=== PATIENT | female | born 2000 | race Caucasian/White ===

== ENCOUNTER 2019-02-15 17:48 | Emergency (ER) | payer SELFPAY ==
[~2019-02-15] VITALS: Ht 170.2 cm; Wt 52.3 kg
[2019-02-15 17:58] VITALS: BP 132/77; TEMP 97.5
[2019-02-15] MEDS ORDERED: PROAIR HFA0.09 MG/AC IH (18:06)
[2019-02-15] MEDS ORDERED: ZYRTEC 10MG10 MG PO (18:06)
[2019-02-15 18:25] LABS: BASO # 0.1 (0.0-0.2); BASO % 0.4 % (0.0-2.0); EOS # 1.5 (0.0-0.7); EOS % 11.5 % (0-4.0); GRAN # 7.8 (1.4-6.5); GRAN % 60.1 % (42.2-75.2); HEMATOCRIT 39.2 % (35.0-45.0); HEMOGLOBIN 13.6 g/dl (12.0-15.0); LYMPH # 2.8 (1.2-3.4); LYMPH % 21.2 % (20.0-51.0); MEAN CELL VOLUME 88 fl (80.0-95.0); MEAN CORPUSCULAR HEMOGLOBIN 31 pg (26.0-32.0); MEAN CORPUSCULAR HGB CONC 35 g/dl (33.0-37.0); MEAN PLATELET VOLUME 9.5 fl (7.4-10.4); MONO # 0.9 (0.1-0.6); MONO % 6.6 % (1.7-9.3); PLATELET COUNT 282 K/mm3 (130-400); RED BLOOD COUNT 4.45 M/mm3 (4.10-5.30)
[2019-02-15 18:46] LABS: COLLECTION METHOD CLEAN CATCH
[2019-02-15 18:47] LABS: ALBUMIN 4.6 gm/dL (3.5-5.0); BILIRUBIN,TOTAL 0.3 mg/dL (0.0-1.0); C-REACTIVE PROTEIN 0.6 mg/dL (0.0-0.9); CALCIUM 9.6 mg/dL (8.4-10.2); CREATININE, serum 0.75 (0.52-1.25); POTASSIUM 3.7 mmol/L (3.4-5.0); TOTAL PROTEIN 7.8 gm/dL (6.4-8.2)
[2019-02-15 19:01] LABS: MUCOUS Present /lpf; PH 5 (5-8); URINE APPEARANCE Clear; URINE BACTERIA None Seen /hpf; URINE BILIRUBIN Negative (NEGATIVE); URINE BLOOD Negative (NEGATIVE); URINE COLOR Yellow; URINE GLUCOSE Negative (NEGATIVE); URINE KETONE Negative (NEGATIVE); URINE LEUKOCYTE ESTERASE Negative (NEGATIVE); URINE NITRATE Negative (NEGATIVE); URINE PROTEIN(semi-quant) Negative (NEGATIVE); URINE RBC 0-2 /hpf; URINE UROBILINOGEN Negative (NEGATIVE)
[2019-02-15] MEDS ORDERED: NORCO 325 MG-51 TAB PO (21:18)
[2019-02-15] MEDS ORDERED: ZOFRAN ODT4 MG PO (21:18)
[2019-02-15 21:52] VITALS: PULSE 85
== END 2019-02-15 21:52 | disposition home or self-care (01) ==
LOC: COL.ER 17:48
PROVIDERS: Nurse Practitioner
DX: R10.31 Right lower quadrant pain (principal); J45.909 Unspecified asthma, uncomplicated
CPT/HCPCS: J1170; J1885; J2405; J7030; Q9967

== ENCOUNTER 2019-05-21 11:57 | Emergency (ER) | payer SELFPAY ==
[~2019-05-21] VITALS: Ht 170.2 cm; Wt 54.5 kg
[~2019-05-21 11:57] MED LIST: NORCO 325 MG-51 TAB PO; PROAIR HFA0.09 MG/AC IH; ZOFRAN ODT4 MG PO; ZYRTEC 10MG10 MG PO
[2019-05-21 12:05] VITALS: TEMP 98.4
[2019-05-21 12:37] LABS: COLLECTION METHOD CLEAN CATCH
[2019-05-21 12:44] LABS: MUCOUS Present /lpf; PH 5 (5-8); SQUAMOUS EPITHELIAL 0-2 /hpf; URINE APPEARANCE Clear; URINE BACTERIA None Seen /hpf; URINE BILIRUBIN Negative (NEGATIVE); URINE BLOOD Negative (NEGATIVE); URINE COLOR Yellow; URINE GLUCOSE Negative (NEGATIVE); URINE KETONE Negative (NEGATIVE); URINE LEUKOCYTE ESTERASE Negative (NEGATIVE); URINE NITRATE Negative (NEGATIVE); URINE PROTEIN(semi-quant) Negative (NEGATIVE); URINE RBC 0-2 /hpf; URINE UROBILINOGEN Negative (NEGATIVE)
[2019-05-21 13:50] LABS: BASO % 0.4 % (0.0-2.0); EOS # 0.5 (0.0-0.7); EOS % 6.2 % (0-4.0); GRAN # 5.3 (1.4-6.5); GRAN % 65.7 % (42.2-75.2); HEMATOCRIT 38.5 % (35.0-45.0); HEMOGLOBIN 13.1 g/dl (12.0-15.0); LYMPH # 1.7 (1.2-3.4); MEAN CELL VOLUME 88 fl (80.0-95.0); MEAN CORPUSCULAR HEMOGLOBIN 30 pg (26.0-32.0); MEAN CORPUSCULAR HGB CONC 34 g/dl (33.0-37.0); MEAN PLATELET VOLUME 9.7 fl (7.4-10.4); MONO # 0.5 (0.1-0.6); MONO % 6.5 % (1.7-9.3); PLATELET COUNT 277 K/mm3 (130-400); REDCELL DISTRIBUTION WIDTH-CV 12.1 % (11.5-14.5)
[2019-05-21 14:21] LABS: ALANINE AMINOTRANSFERASE 7 U/L (9-52); ALBUMIN 4.3 gm/dL (3.5-5.0); ALKALINE PHOSPHATASE 62 U/L (50-136); ANION GAP 9 mmol/L (7-16); AST,SGOT 26 U/L (15-37); BILIRUBIN,TOTAL 0.6 mg/dL (0.0-1.0); BLOOD UREA NITROGEN 11 mg/dL (7-17); CALCIUM 9.5 mg/dL (8.4-10.2); CARBON DIOXIDE 25 mmol/L (22-30); CHLORIDE 106 mmol/L (98-107); GLUCOSE 97 mg/dL (74-106); LIPASE 117 U/L (23-300); POTASSIUM 4.3 mmol/L (3.4-5.0); SODIUM 140 mmol/L (137-145); TOTAL PROTEIN 7.1 gm/dL (6.4-8.2)
[2019-05-21 14:27] LABS: C-REACTIVE PROTEIN < 0.5 mg/dL (0.0-0.9)
[2019-05-21] MEDS ORDERED: ZOFRAN ODT4 MG PO (15:42)
[2019-05-21] MEDS ORDERED: PHENERGAN 25 TA25 MG PO (15:42)
[2019-05-21 16:00] VITALS: BP 112/62; PULSE 85
== END 2019-05-21 16:10 | disposition home or self-care (01) ==
LOC: COL.ER 11:57
PROVIDERS: Emergency Medicine
DX: B34.9 Viral infection, unspecified (principal); R11.10 Vomiting, unspecified
CPT/HCPCS: J1885; J2405; J7030

== ENCOUNTER 2019-11-22 08:15 | Emergency (ER) | payer OTHER ==
[~2019-11-22] VITALS: Ht 167.6 cm; Wt 54.5 kg
[~2019-11-22 08:15] MED LIST changes: +PHENERGAN 25 TA25 MG PO
[2019-11-22 08:24] VITALS: BP 126/76; TEMP 97.7
[2019-11-22] MEDS ORDERED: TAMIFLU 75MG75 MG PO (09:49)
[2019-11-22 10:36] VITALS: PULSE 91
== END 2019-11-22 10:36 | disposition home or self-care (01) ==
LOC: COL.ER 08:15
DX: J11.1 Influenza due to unidentified influenza virus with other respiratory manifestations (principal); M54.2 Cervicalgia
CPT/HCPCS: J1885

== ENCOUNTER 2019-11-28 22:18 | Emergency (ER) | payer OTHER ==
[~2019-11-28] VITALS: Ht 167.6 cm; Wt 54.5 kg
[~2019-11-28 22:18] MED LIST changes: +TAMIFLU 75MG75 MG PO
[2019-11-28 22:23] VITALS: BP 133/84; TEMP 97.9
[2019-11-28] MEDS ORDERED: PRENATAL TABLET PO (22:26)
[2019-11-29] MEDS ORDERED: FLEXERIL 1010 MG/TAB PO (00:24)
[2019-11-29 00:33] VITALS: PULSE 95
== END 2019-11-29 00:33 | disposition home or self-care (01) ==
LOC: COL.ER 22:18
DX: M43.6 Torticollis (principal); J45.909 Unspecified asthma, uncomplicated

== ENCOUNTER 2019-12-04 20:17 | Emergency (ER) | payer OTHER ==
[~2019-12-04 20:17] MED LIST changes: +FLEXERIL 1010 MG/TAB PO; +PRENATAL TABLET PO
== END 2019-12-04 21:06 | disposition left against medical advice (07) ==
LOC: COL.ER 20:17
DX: R06.00 Dyspnea, unspecified (principal)

== ENCOUNTER 2020-02-03 11:17 | Emergency (ER) | payer OTHER ==
[~2020-02-03] VITALS: Ht 167.6 cm; Wt 54.5 kg
[2020-02-03 11:21] VITALS: TEMP 98.2
[2020-02-03 11:53] LABS: COLLECTION METHOD CLEAN CATCH
[2020-02-03 11:56] LABS: BASO % 0.3 % (0.0-2.0); EOS # 0.6 (0.0-0.7); EOS % 6.4 % (0-4.0); GRAN # 5.8 (1.4-6.5); GRAN % 66.4 % (42.2-75.2); HEMATOCRIT 38.6 % (35.0-45.0); HEMOGLOBIN 13.5 g/dl (12.0-15.0); LYMPH # 1.8 (1.2-3.4); LYMPH % 20.1 % (20.0-51.0); MEAN CELL VOLUME 88 fl (80.0-95.0); MEAN CORPUSCULAR HEMOGLOBIN 31 pg (26.0-32.0); MEAN CORPUSCULAR HGB CONC 35 g/dl (33.0-37.0); MEAN PLATELET VOLUME 9.2 fl (7.4-10.4); MONO # 0.6 (0.1-0.6); MONO % 6.5 % (1.7-9.3); PLATELET COUNT 264 K/mm3 (130-400); RED BLOOD COUNT 4.41 M/mm3 (4.10-5.30); REDCELL DISTRIBUTION WIDTH-CV 12.6 % (11.5-14.5)
[2020-02-03 12:05] LABS: MUCOUS Present /lpf; PH 8 (5-8); URINE APPEARANCE Turbid; URINE BACTERIA Occasional /hpf; URINE BILIRUBIN Negative (NEGATIVE); URINE BLOOD Negative (NEGATIVE); URINE COLOR Yellow; URINE GLUCOSE Negative (NEGATIVE); URINE KETONE Negative (NEGATIVE); URINE LEUKOCYTE ESTERASE Negative (NEGATIVE); URINE NITRATE Positive (NEGATIVE); URINE PROTEIN(semi-quant) Negative (NEGATIVE); URINE RBC 0-2 /hpf
[2020-02-03 12:14] LABS: ALANINE AMINOTRANSFERASE 15 U/L (4-34); ALBUMIN 4.4 gm/dL (3.5-5.0); ALKALINE PHOSPHATASE 63 U/L (50-136); ANION GAP 10 mmol/L (7-16); AST,SGOT 23 U/L (15-37); BILIRUBIN,TOTAL 0.7 mg/dL (0.0-1.0); BLOOD UREA NITROGEN 6 mg/dL (7-17); CALCIUM 9.5 mg/dL (8.4-10.2); CARBON DIOXIDE 24 mmol/L (22-30); CHLORIDE 100 mmol/L (98-107); CREATININE, serum 0.51 (0.52-1.25); GLUCOSE 93 mg/dL (74-106); POTASSIUM 3.7 mmol/L (3.4-5.0); SODIUM 134 mmol/L (137-145); TOTAL PROTEIN 7.5 gm/dL (6.4-8.2)
[2020-02-03] MEDS ORDERED: FLINTSTONES COM1 CT1 PO (12:31)
[2020-02-03 13:09] LABS: HCG,QUANTITATIVE 152100 mIU/mL (0-5)
[2020-02-03 13:10] LABS: C-REACTIVE PROTEIN < 0.5 mg/dL (0.0-0.9)
[2020-02-03] MEDS ORDERED: MACROBID 1100 MG/CAP PO (14:48)
[2020-02-03 15:00] VITALS: BP 118/78; PULSE 92
== END 2020-02-03 15:05 | disposition home or self-care (01) ==
LOC: COL.ER 11:17
PROVIDERS: Physician Assistant
DX: O23.41 Unspecified infection of urinary tract in pregnancy, first trimester (principal); Z3A.10 10 weeks gestation of pregnancy
CPT/HCPCS: J1200; J7030

== ENCOUNTER 2020-05-23 15:36 | Outpatient (CLI) | payer OTHER ==
[~2020-05-23 15:36] MED LIST changes: +FLINTSTONES COM1 CT1 PO; +MACROBID 1100 MG/CAP PO
--- NOTE | 2020-05-23 15:55 | NUR ---
Patient to LR5 via wheelchair with spouse, changed into gown, FHR/TOCO monitors placed and explained. Patient states that she doctors with [facility] and that she has had a constant pain in lower back, nausea, and headache, and has only felt baby move once today. Plan of care discussed. Assessment completed. 1613: Dr. Andrews called and orders for UA.
[2020-05-23] MEDS ORDERED: TYLENOL 500MG500 MG PO (16:13)
[2020-05-23 16:30] VITALS: BP 106/66; PULSE 91; TEMP 98.3
[2020-05-23 16:39] LABS: COLLECTION METHOD CLEAN CATCH
[2020-05-23 16:50] LABS: PH 7 (5-8); SQUAMOUS EPITHELIAL 0-2 /hpf; URINE APPEARANCE Clear; URINE BACTERIA Rare /hpf; URINE BILIRUBIN Negative (NEGATIVE); URINE BLOOD Negative (NEGATIVE); URINE COLOR Straw; URINE GLUCOSE Negative (NEGATIVE); URINE KETONE Negative (NEGATIVE); URINE LEUKOCYTE ESTERASE Negative (NEGATIVE); URINE NITRATE Negative (NEGATIVE); URINE PROTEIN(semi-quant) Negative (NEGATIVE); URINE RBC 0-2 /hpf; URINE UROBILINOGEN Negative (NEGATIVE); URINE WBC 0-2 /hpf
[2020-05-23 17:00] VITALS: BP 107/68; PULSE 91
--- NOTE | 2020-05-23 17:12 | NUR ---
called and notified and discharge orders given. 1717: Patient off monitors and updated on plan of discharge. 1725: Patient given discharge instructions and verbalizes understanding and signs papers. Questions answered 1730: Patient ambulatory off unit with spouse.
[2020-05-23 17:17] VITALS: BP 108/66; PULSE 95
== END 2020-05-23 17:30 | disposition home or self-care (01) ==
LOC: LDRO 15:36 → COL.ER 15:36 → EDSTATUS 15:47 → LDRO 17:30
PROVIDERS: Student in an Organized Health Care Education/Training Program
DX: O26.892 Other specified pregnancy related conditions, second trimester (principal); M54.5 Low back pain; R11.0 Nausea; R51 Headache; Z3A.25 25 weeks gestation of pregnancy

== ENCOUNTER 2020-08-01 20:03 | Outpatient (CLI) | payer OTHER ==
[~2020-08-01 20:03] MED LIST changes: +TYLENOL 500MG500 MG PO
--- NOTE | 2020-08-01 20:10 | NUR ---
G1 at 35 weeks and 3 days arrives to unit ambulatory with complaint of sharp upper abdominal pain that comes and goes. Pt reports she had labor on June 30 and was started on procardia. Pt reports good movement, denies vaginal bleeding, or loss of fluid. Pt oriented to room, call light within reach, bed in low and locked position. Pt receives cares at [facility] but was in town when pain started. US and toco explained and applied. Vital signs obtained. Pt denies RUQ pain, blurry vision, or heachaches. Admissino assessment started. SVE 1/high, membranes intact.
[2020-08-01 20:30] VITALS: BP 130/82; PULSE 108; TEMP 98.2
[2020-08-01] MEDS ORDERED: PROCARDIA10 MG PO (20:40)
[2020-08-01 21:00] VITALS: BP 123/87; PULSE 117
[2020-08-01 21:23] VITALS: BP 128/86; PULSE 110
--- NOTE | 2020-08-01 21:35 | NUR ---
Pt ok to discharge home at this time. Discharge instructions reviewed, pt verbalized understanding. Pt seen ambulating off unit with spouse.
== END 2020-08-01 21:35 | disposition home or self-care (01) ==
LOC: LDRO 20:03 → LDR 20:10 → LDRO 21:35
DX: O62.9 Abnormality of forces of labor, unspecified (principal); Z3A.35 35 weeks gestation of pregnancy
CPT/HCPCS: OP